=== PATIENT | male | born 1975 ===

== ENCOUNTER 2021-11-11 23:06 | Emergency (ER) | payer MEDICAID, SELFPAY ==
[2021-11-11 23:42] VITALS: BP 157/107; PULSE 109; RESP 18; TEMP 36.8; O2SAT 96; BMI 38.3
== END 2021-11-12 04:01 | disposition left against medical advice (07) ==
LOC: HO.ED 11-12 03:58
PROVIDERS: Emergency Provider Emergency Medicine
DX: Z04.1 Encounter for examination and observation following transport accident (principal); M54.9 Dorsalgia, unspecified; M25.511 Pain in right shoulder; M25.561 Pain in right knee
CPT/HCPCS: 99281; 99282